=== PATIENT | female | born 1955 | race Hispanic/Latino ===

== ENCOUNTER 2018-11-08 13:04 | Outpatient (CLI) | payer MEDICARE ==
--- NOTE | 2018-11-08 15:29 | BD ---
Exam: DEXA Bone Density 11/08/18 COMPARISON: 01/22/16 HISTORY: Postmenopausal female undergoing screening for osteoporosis. Lumbar Spine: BMD (g/cm2) L1 0.794 T-Score: -1.8 Previous -1.2 L2 0.838 T-Score: -1.7 Previous -1.8 L3 0.807 T-Score: -2.5 Previous -2.3 L4 0.840 T-Score: -2.0 Previous -1.8 L1-L4 0.821 T-Score: -2.1 Previous -1.8 Femoral Neck: 0.756 T-Score: -0.8 Previous -0.7 Total Femur: 0.880 T-Score: -0.5 Previous -0.4 Impression: 1. Osteopenia within the lumbar spine correlating with a moderately increased risk for fracture . 2. Normal femoral neck/proximal femur bone mineral density. POS: [facility]
== END 2018-11-08 13:05 | disposition home or self-care (01) ==
LOC: BICMAMMO 13:04
PROVIDERS: ATTEND Family Medicine
DX: Z12.31 Encounter for screening mammogram for malignant neoplasm of breast (principal); Z13.820 Encounter for screening for osteoporosis; M81.0 Age-related osteoporosis without current pathological fracture; M85.88 Other specified disorders of bone density and structure, other site; Z85.89 Personal history of malignant neoplasm of other organs and systems
CPT/HCPCS: 77063; 77067; 77080

== ENCOUNTER 2018-11-09 06:56 | Outpatient (CLI) | payer MEDICARE ==
--- NOTE | 2018-11-09 08:26 | ULT ---
GALLBLADDER ULTRASOUND: HISTORY: A 63-year-old female with a history of cholelithiasis. FINDINGS: Liver echogenicity is heterogeneous with some scattered areas of increased echogenicity and decreased echogenicity, evidence for some fatty change, with some areas of fatty sparing. Cholelithiasis with at least one large gallstone without gallbladder wall thickening or pericholecystic fluid. The comm on bile duct is 0.7 cm. The visualized pancreas and right kidney are unremarkable. IMPRESSION: 1. Multiple cholelithiasis. 2. Borderline ductal dilatation, with the common duct measuring 0.7 cm. 3. Heterogeneous liver attenuation. POS: [facility]
== END 2018-11-09 06:57 | disposition home or self-care (01) ==
LOC: BICULT 06:56
PROVIDERS: ATTEND Family Medicine
DX: K80.80 Other cholelithiasis without obstruction (principal); K83.8 Other specified diseases of biliary tract
CPT/HCPCS: 76705

== ENCOUNTER 2018-12-02 12:56 | Outpatient (CLI) | payer MEDICARE ==
[2018-12-02 14:12] LABS: #Eosinphils 0.1 thou/uL (0.0-0.7); #Lymphocytes 2.1 thou/uL (1.20-3.40); #Monocytes 0.3 thou/uL (0.11-0.59); #Neutrophils 3.9 thou/uL (1.40-6.50); %Basophils 0.1 % (0.0-1.0); %Eosinophils 0.9 % (0.0-10.0); %Monocytes 5.2 % (0.0-10.0); %Neutrophils 60.8 % (42.0-75.0); Hemoglobin 14.1 g/dL (12.0-16.0); Mean Corpuscular Hemoglobin 30.3 pg (27.0-31.0); Mean Corpuscular Volume 89.3 fL (78.0-98.0); Mean Platelet Volume 8.3 fL (7.4-10.4); Platelet Count 210 thou/uL (130-400); RBC Distribution Width 11.5 % (11.5-14.5); Red Blood Cell (RBC) Count 4.64 mill/uL (4.20-5.40); White Blood Cell (WBC) Count 6.4 thou/uL (4.8-10.8)
[2018-12-02 14:34] LABS: ALT (SGPT) 20 U/L (8-55); AST (SGOT) 18 U/L (5-34); Albumin 4.5 g/dL (3.4-4.8); Alkaline Phosphatase 84 U/L (40-150); Anion Gap 14 mmol/L (10-20); BUN (Urea Nitrogen) 17 mg/dL (9.8-20.1); Bilirubin, Total 0.3 mg/dL (0.2-1.2); Calc. Creatinine Clearance 0 mL/min (70-130); Calcium 9.5 mg/dL (7.8-10.44); Carbon Dioxide 25 mmol/L (23-31); Chloride 107 mmol/L (98-107); Estimated GFR-MDRD 70; Globulin 2.6 g/dL (2.4-3.5); Glucose 103 mg/dL (80-115); Potassium 4.4 mmol/L (3.5-5.1); Protein, Total 7.1 g/dL (6.0-8.3); Sodium 142 mmol/L (136-145)
--- NOTE | 2018-12-02 17:08 | EKG ---
Test Reason : Blood Pressure : / mmHG Vent. Rate : 063 BPM Atrial Rate : 063 BPM P-R Int : 138 ms QRS Dur : 092 ms QT Int : 404 ms P-R-T Axes : 015 027 029 degrees QTc Int : 413 ms Normal sinus rhythm Incomplete right bundle branch block Borderline ECG No previous ECGs available Confirmed by DR. Radha BURGOS ([id number]) on 12/02/2018 5:07:41 PM Referred By: [facility] Confirmed By:DR. Radha BURGOS
== END 2018-12-02 12:57 | disposition home or self-care (01) ==
LOC: LABBT 12:56
PROVIDERS: ATTEND Specialist
DX: Z01.818 Encounter for other preprocedural examination (principal); K80.20 Calculus of gallbladder without cholecystitis without obstruction
CPT/HCPCS: 80053; 85025; 93005; 93010

== ENCOUNTER 2018-12-08 08:28 | Day surgery (SDC) | payer MEDICARE ==
[2018-12-02 13:16] VITALS: BMI 23.1
[2018-12-08] MEDS ORDERED: Ketorolac Tromethamine 30 MG/ML VIAL ONE (09:20)
[2018-12-08] MEDS ORDERED: CEFAZOLIN 2 GM/50 ML BAG ONE (09:20)
[2018-12-08] MEDS ORDERED: Fentanyl 100 MCG/2 ML VIAL ONE ×2 (11:21)
[2018-12-08] MEDS ORDERED: Bupivacaine/Epinephrine 0.25% 30 ML VIAL ONE (11:22)
[2018-12-08] MEDS ORDERED: Iothalamate Meglumine 60% 50 ML VIAL FS ONE (11:22)
[2018-12-08] MEDS ORDERED: PROPOFOL 200 MG/20 ML VIAL ONE (11:50)
[2018-12-08] MEDS ORDERED: Ondansetron PF 4 MG/2 ML Vial ONE (11:50)
[2018-12-08] MEDS ORDERED: Rocuronium Bromide 10 MG/ML (10ML VIAL) ONE (11:50)
[2018-12-08] MEDS ORDERED: Glycopyrrolate 0.2 MG/ML 5 ML SYRINGE ONE (11:50)
[2018-12-08] MEDS ORDERED: Dexamethasone 20 MG/5 ML VIAL ONE (11:50)
[2018-12-08] MEDS ORDERED: Lidocaine 1% PF 5 ML VIAL ONE (11:50)
--- NOTE | 2018-12-09 13:19 | OP ---
DATE OF PROCEDURE: 12/08/2018 PREOPERATIVE DIAGNOSIS: Symptomatic cholelithiasis. POSTOPERATIVE DIAGNOSIS: Symptomatic cholelithiasis. PROCEDURE PERFORMED: Laparoscopic cholecystectomy. ANESTHESIA: General endotracheal. INDICATIONS: The patient is a 63-year-old female. She presents with ultrasound proven cholelithiasis and symptoms referable to her gallbladder. I recommended laparoscopic cholecystectomy. DESCRIPTION OF PROCEDURE: Informed consent was obtained. The patient was taken to the operating room where general endotracheal anesthesia was obtained with the patient in the supine position. The abdomen was prepped with Betadine and draped in the usual sterile fashion. 0.25% Marcaine with epinephrine was infiltrated below the umbilicus and a 10 mm infraumbilical incision was created. A Veress needle was passed through this incision into the peritoneal cavity. A pneumoperitoneum was established using carbon dioxide up to a pressure of 15 mmHg. Local anesthetic was infiltrated and 3 additional 5 mm right upper quadrant incisions were created. Through the mid incision, a 5 mm port was passed into the peritoneal cavity. The camera was passed through this port and under direct vision, an 11 port was passed through the infraumbilical incision. The camera was replaced through this port, and under direct vision, 2 additional 5 mm ports were passed through the incisions already created. The gallbladder was grasped and retracted in a cephalad direction. Minimal adhesions were bluntly stripped away from the apex of the gallbladder, and the apex was retracted laterally and inferiorly. Careful dissection was carried out to the apex of the gallbladder to identify the cystic duct and cystic artery. These were each carefully dissected circumferentially. The duct was of normal caliber. Both the duct and the artery were divided between clips, leaving 2 on the side to remain within the abdomen. The gallbladder was then dissected out of the gallbladder fossa using electrocautery and removed through the infraumbilical port site. The fascia was closed with 0 Vicryl suture and a GraNee needle. The right upper quadrant was inspected and irrigated. All irrigant was aspirated. All ports and instruments were removed under direct vision. Pneumoperitoneum was carefully evacuated. Additional local anesthetic was infiltrated into each port site. The skin edges were approximated with 4-0 Monocryl subcuticular sutures, and Dermabond was placed externally. There were no complications. The patient tolerated the procedure well and was taken to the recovery room in stable condition. FINDINGS: Her gallbladder had minimal inflammatory change. There were essentially no adhesions to the gallbladder. The operation was performed uneventfully with essentially no blood loss and no complications. There was one large stone present within the lumen of the gallbladder. Job ID: [id number]
== END 2018-12-08 16:25 | disposition home or self-care (01) ==
LOC: SDC 08:28
PROVIDERS: ATTEND Specialist
PROC: 0FT44ZZ Resection of Gallbladder, Percutaneous Endoscopic Approach (ICD-10-PCS; principal; 2018-12-08)
DX: K80.10 Calculus of gallbladder with chronic cholecystitis without obstruction (principal); E78.5 Hyperlipidemia, unspecified; Z88.8 Allergy status to other drugs, medicaments and biological substances; E11.9 Type 2 diabetes mellitus without complications; Z79.84 Long term (current) use of oral hypoglycemic drugs; Z79.899 Other long term (current) drug therapy
CPT/HCPCS: 88304; J0131; J1100; J1885; J2001; J2405; J2704; J3010; Q9961

== ENCOUNTER 2020-05-02 10:43 | Outpatient (CLI) | payer MEDICARE ==
--- NOTE | 2020-05-02 15:21 | MRI ---
MR OF THE LUMBAR SPINE 05/02/20 HISTORY: Lumbar spine pain, back pain with left lower extremity radiculopathy. TECHNIQUE: Multiplanar and multisequence MR imaging of the lumbar spine is provided without contrast. FINDINGS: The sagittal STIR imaging demonstrates no focal area of osseous marrow edema. There are mild edematous changes adjacent to the facet joint on the left at L5-S1 posteriorly involvi ng the soft tissues. No significant anterolisthesis or retrolisthesis is noted within the lumbar spine. On the basis of five lumbar type vertebral bodies, the conus medullaris terminates at the T12-L1 leve l. T12-L1: Intervertebral disc height and signal intensity within normal limits with no significant cent ral canal and neural foraminal stenosis. Mild bilateral facet hypertrophy. L1-2: Mild bilateral facet hypertrophy. Intervertebral disc height and signal intensity grossly unrem arkable. No significant central canal or neural foraminal stenosis. L2-3: Mild bilateral facet hypertrophy. No significant central canal or neural foraminal stenosis. L3-4: Moderate bilateral facet hypertrophy. Minimal disc bulge with no central canal or neural forami nal stenosis. L4-5: There is disc desiccation and minimal disc bulge. Bilateral facet hypertrophy and hypertrophy o f the ligamentum flavum, left greater than right. No significant central canal or neural foraminal st enosis. L5-S1: There is bilateral facet hypertrophy and hypertrophy of the ligamentum flavum, right greater t alexandre left. There is focal prominent hypertrophy of the ligamentum flavum on the left with possible dev eloping very small synovial cysts. These findings cause a moderate degree of a right lateral recess s tenosis at the L5-S1 level. There is moderate right and mild left neural foraminal stenosis. The imaged retroperitoneal structures demonstrate no acute findings. IMPRESSION: Multilevel lumbar spine degenerative change, most prominent on the right at L5-S1. POS: [facility]
== END 2020-05-02 10:44 | disposition home or self-care (01) ==
LOC: BICMRI 10:43 → MRI 10:44
PROVIDERS: ATTEND Family Medicine
DX: M54.5 Low back pain (principal); M47.817 Spondylosis without myelopathy or radiculopathy, lumbosacral region
CPT/HCPCS: 72148

== ENCOUNTER 2021-03-07 08:24 | Outpatient (CLI) | payer MEDICARE | END 2021-03-07 08:25 | disposition home or self-care (01) | LOC: BICRAD 08:24 | PROVIDERS: ATTEND Family Medicine | DX: M54.2 Cervicalgia (principal); M47.812 Spondylosis without myelopathy or radiculopathy, cervical region | CPT/HCPCS: 72040 ==

== ENCOUNTER 2021-09-05 07:53 | Outpatient (CLI) | payer MEDICARE | END 2021-09-05 07:54 | disposition home or self-care (01) | LOC: BICMAMMO 07:53 | PROVIDERS: ATTEND Family Medicine | DX: Z13.820 Encounter for screening for osteoporosis (principal); M81.0 Age-related osteoporosis without current pathological fracture; M85.852 Other specified disorders of bone density and structure, left thigh | CPT/HCPCS: 77080 ==